=== PATIENT | male | born 1960 | race Caucasian/White ===

== ENCOUNTER → 2019-04-20 | Outpatient (CLI) | payer OTHER | LOC: M.MRI 07:23 | DX: I67.82 Cerebral ischemia (principal); I10 Essential (primary) hypertension; R07.82 Intercostal pain; E78.49 Other hyperlipidemia; R42 Dizziness and giddiness ==

== ENCOUNTER → 2019-09-28 | Outpatient (CLI) | payer OTHER ==
[2019-09-28 15:45] LABS: ABSOLUTE BASOPHILS 0.1 thou/uL (0.0-0.2); ABSOLUTE EOSINOPHILS 0.1 thou/uL (0.0-0.7); ABSOLUTE LYMPHOCYTES 2.3 thou/uL (0.8-5.3); ABSOLUTE MONOCYTES 0.8 thou/uL (0.0-1.2); ABSOLUTE NEUTROPHILS 5.1 thou/uL (1.6-8.1); BASOPHILS 0.6 %; EOSINOPHILS 1.2 %; HEMATOCRIT 48.9 % (42.0-52.0); HEMOGLOBIN 17.1 gm/dL (14.0-18.0); LYMPHOCYTES 27.6 %; MCH 30.9 pg (26.0-34.0); MCV 88.3 fL (80.0-100.0); MONOCYTES 9.7 %; MPV 8.6 fl. (7.2-11.1); NUCLEATED RBCS 0 /100WBC; PLATELET COUNT* 205 thou/uL (150-400); POLYS 60.9 %; RBC 5.54 mil/uL (4.50-6.00); RDW-CV 13.5 % (10.5-14.5); WBC 8.4 thou/uL (4.0-11.0)
[2019-09-28 16:07] LABS: ALBUMIN 3.9 g/dL (3.4-5.0); CALCIUM 9.1 mg/dL (8.5-10.1); CREATININE 0.9 mg/dL (0.6-1.3); TOTAL BILIRUBIN 2.8 mg/dL (<0.1-1.0); TOTAL PROTEIN 7.2 g/dL (6.4-8.2)
[2019-09-28 16:10] LABS: POTASSIUM 2.9 mmol/L (3.5-5.1)
== END ==
LOC: M.CT 15:26
PROVIDERS: Internal Medicine
DX: K76.0 Fatty (change of) liver, not elsewhere classified (principal); Z90.49 Acquired absence of other specified parts of digestive tract

== ENCOUNTER → 2020-03-01 | Outpatient (CLI) | payer OTHER ==
--- NOTE | 2020-03-01 14:36 | 2DMMODE ---
[place] [address] 2 D/M-MODE ECHOCARDIOGRAM Name: TORIE CERNA Room: [facility]#: [id number] Admission: 03/01/20 Attend Phys: Campbell King, Discharge: Date of : 64 Date of Service: 03/01/20 1436 Report #: [id number] THIS REPORT FOR: cc: Shira Cerna MD, Lin W. MD Holkins, John M. MD [facility] ~ APPROVED REPORT Study performed: 03/01/2020 13:41:46 EXAM: Comprehensive 2D, Doppler, and color-flow Echocardiogram Patient Location: Out-Patient BSA: 1.93 HR: 85 bpm BP: 120/72 mmHg Other Information Study Quality: Good Indications Chest Pain 2D Dimensions IVSd: 13.48 (7-11mm) LVOT Diam: 20.45 (18-24mm) LVDd: 41.89 mm PWd: 10.16 (7-11mm) Ascending Ao: 29.84 (22-36mm) LVDs: 23.67 (25-40mm) Aortic Root: 25.65 mm Volumes Left Atrial Volume (Systole) LA ESV Index: 15.80 mL/m2 Aortic Valve AoV Peak Justo.: 0.93 m/s AO Peak Gr.: 3.45 mmHg LVOT Max P.14 mmHg AO Mean Gr.: 2.13 mmHg LVOT Mean P.43 mmHg LVOT Max V: 0.89 m/s AO V2 VTI: 17.20 cm LVOT Mean V: 0.54 m/s JOSUE (VTI): 3.42 cm2 LVOT V1 VTI: 17.91 cm Mitral Valve E/A Ratio: 1.06 [place] [address] 2 D/M-MODE ECHOCARDIOGRAM Name: TORIE CERNA Room: [facility]#: [id number] Admission: 03/01/20 Attend Phys: Campbell King, Discharge: Date of : 64 Date of Service: 03/01/20 1436 Report #: [id number] MV Decel. Time: 227.91 ms MV E Max Justo.: 0.72 m/s MV PHT: 66.09 ms MVA (PHT): 3.33 cm2 TDI E/Lateral E': 8.00 E/Medial E': 9.00 Medial E' Justo.: 0.08 m/s Lateral E' Justo.: 0.09 m/s Pulmonary Valve PV Peak Justo.: 1.11 m/s PV Peak Gr.: 4.92 mmHg Tricuspid Valve RAP Estimate: 5.00 mmHg TR Peak Gr.: 18.09 mmHg RVSP: 23.09 mmHg PA Pressure: 23.09 mmHg Left Ventricle The left ventricle is normal size. There is normal LV segmental wall motion. There is normal left ventricular wall thickness. Left ventricular systolic function is normal. The left ventricular ejection fraction is within the normal range. LVEF is 60%. The left ventricular diastolic function is normal. Right Ventricle The right ventricle is normal size. The right ventricular systolic function is normal. Atria The left atrium size is normal. The right atrium size is normal. Aortic Valve The aortic valve is normal in structure. No aortic regurgitation is present. There is no aortic valvular stenosis. Mitral Valve The mitral valve is normal in structure. There is no mitral valve regurgitation noted. No evidence of mitral valve stenosis. Tricuspid Valve The tricuspid valve is normal in structure. Trace tricuspid regurgitation[place] [address] 2 D/M-MODE ECHOCARDIOGRAM Name: TORIE CERNA Room: [facility]#: [id number] Admission: 03/01/20 Attend Phys: Campbell King, Discharge: Date of : 64 Date of Service: 03/01/20 1436 Report #: [id number] The pulmonary valve is normal in structure. There is no pulmonic valvular regurgitation. Great Vessels The aortic root is normal in size. IVC is normal in size and collapses >50% with inspiration. Pericardium There is no pericardial effusion. <Conclusion> The left ventricle is normal size. There is normal left ventricular wall thickness. Left ventricular systolic function is normal. The left ventricular ejection fraction is within the normal range. LVEF is 60%. The left ventricular diastolic function is normal. The right ventricle is normal size. The left atrium size is normal. The aortic valve is normal in structure. The mitral valve is normal in structure. The tricuspid valve is normal in structure. IVC is normal in size and collapses >50% with inspiration. There is no pericardial effusion. There is normal LV segmental wall motion. <ELECTRONICALLY SIGNED> By: Corey Alejandro MD, FACC 03/01/20 1436 1436 1436 Corey Alejandro MD, FACC /INF
--- NOTE | 2020-03-01 18:31 | CARDNUC ---
[place] [address] CARDIAC NUCLEAR IMAGING REPORT Name: TORIE CERNA Room: [facility]#: [id number] Admission: 03/01/20 Attend Phys: Campbell King, Discharge: Date of : 64 Date of Service: 03/01/20 1830 Report #: [id number] THIS REPORT FOR: cc: Shira Cerna MD, Lin W. MD Liston, Michael J. MD [facility] ~ APPROVED REPORT Study performed: 03/01/2020 15:34:39 Exam: Nuclear Stress Test Indication: Chest pain Patient Location: Out-Patient Stress Tech: Kriss Oneill Stress Nurse: Angelique Hutchins RN Ht: 5 ft 8 in Wt: 179 lbs BSA: 1.95 m2 BMI: 27.21 Medical History Medical History: HTN, Hyperlipidemia Medications: asa 81, chlorthalidone, k-dur Allergies: prilosec, sulfa Cardiac Risk Factors: Age, Hyperlipidemia, HTN, FHX of CAD Exercise History: Physically active Stress Test Details Stress Test: Exercise stress testing was performed using a Chase protocol. HR Resting HR: 82 bpm Max Heart Rate (APMHR): 163 bpm Max HR Achieved: 158 bpm Target HR (85% APMHR): 138 bpm % of APMHR: 96 Recovery HR: 109 bpm HR response to stress: Normal HR response to stress BP Resting BP: 129/81 mmHg Max BP: 167/81 mmHg BP response to stress: Normal blood pressure response to stress. ECG Resting ECG: [place] [address] CARDIAC NUCLEAR IMAGING REPORT Name: TORIE CERNA Room: [facility]#: [id number] Admission: 03/01/20 Attend Phys: Campbell King, Discharge: Date of : 64 Date of Service: 03/01/20 1830 Report #: [id number] Stress ECG: Sinus Tachycardia ST Change: None Arrhythmia: None Recovery ECG: Sinus Rhythm Recovery ST Change: None Recovery Arrhythmia: None Clinical Reason for Termination: ST changes Exercise duration: 7 min 29 sec Exercise capacity: 9.35 METs Functional Aerobic Impairment 97% The patient tolerated standard Chase protocol exercise without significant cardiac symptoms. Stress ECG Conclusion The baseline twelve-lead EKG shows sinus rhythm without significant ST segment abnormality. EKGs obtained during and post exercise show sinus rhythm and sinus tachycardia with no significant ST segment changes when compared to baseline. There were no stress-induced arrhythmias. NM EXAM: Myocardial Perfusion REST/STRESS Imaging Protocol: Rest TI-201/Stress Tc-99m Resting Data Rest SPECT myocardial perfusion imaging was performed in supine position 30 minutes following the intravenous injection of 11.2 mCi of Tc-99m Sestamibi. Time of rest injection: 13:55 The images were gated to evaluate regional wall motion and calculate left ventricular ejection fraction. Administration Route: IV Administration Site: Right Hand Exercise Stress At peak stress, the patient was injected intravenously with 31.6mCi of Tc-99m Sestamibi. Time of stress injection: 15:40 Administration Route: IV Administration Site: Right Hand Heart Rate at time of stress injection: 158 bpm. Patient continued to exercise for 1 minute(s). Gated Stress SPECT was performed 40 minutes after stress injection. The images were gated to evaluate regional [place] [address] CARDIAC NUCLEAR IMAGING REPORT Name: TORIE CERNA Room: [facility]#: [id number] Admission: 03/01/20 Attend Phys: Campbell King, Discharge: Date of : 64 Date of Service: 03/01/20 1830 Report #: [id number] left ventricular ejection fraction. Prone imaging was performed. Study Quality Study: Good Artifact: Mild Diaphragmatic artifact Study Data At rest, the left ventricular ejection fraction was 63%.. Post stress, the left ventricular ejection was 77%.. TID = 0.85. Perfusion Perfusion images obtained in the supine position at rest and post stress show mild photopenia of the inferior wall that resolves completely with post-rest prone imaging suggesting diaphragmatic attenuation artifact. No other significant defects were noted. Wall Motion Normal left ventricular wall motion. Nuclear Conclusion ECG Findings: negative for ischemia Clinical Findings: negative for ischemia Nuclear Findings: negative for ischemia Exercise Capacity: normal Left Ventricular Function: normal Risk Study: low Perfusion images show no defect to suggest infarct or ischemia. Left ventricular systolic function is normal on gated studies. This is a low risk study. <Conclusion> The baseline twelve-lead EKG shows sinus rhythm without significant ST segment abnormality. EKGs obtained during and post exercise show sinus rhythm and sinus tachycardia with no significant ST segment changes when compared to baseline. There were no stress-induced arrhythmias. <ELECTRONICALLY SIGNED> By: Juventino Castanon MD, FACC 03/01/201829 29 29 Juventino Castanon MD, FACC /INF
== END ==
LOC: M.NUC 02-25 14:41 → M.RAD 12:30 → M.CRD 13:00 → M.NUC 13:00
PROVIDERS: ATTEND Internal Medicine
DX: I10 Essential (primary) hypertension (principal); R07.82 Intercostal pain; E78.49 Other hyperlipidemia; M54.2 Cervicalgia; Z00.00 Encounter for general adult medical examination without abnormal findings

== ENCOUNTER → 2020-09-28 | Outpatient (CLI) | payer OTHER | LOC: M.LAB 05:32 | PROVIDERS: ATTEND Anesthesiology | DX: E87.6 Hypokalemia (principal) ==

== ENCOUNTER → 2020-10-02 | Outpatient (CLI) | payer OTHER | LOC: M.LAB 05:31 | PROVIDERS: ATTEND Anesthesiology | DX: E87.6 Hypokalemia (principal) ==